=== PATIENT | female | born 1990 | race Two or more races ===

== ENCOUNTER 2019-01-25 13:43 | Emergency (ER) | payer MEDICAID, OTHER ==
[~2019-01-25] VITALS: Ht 165.1 cm; Wt 85.3 kg
[2019-01-25 14:20] VITALS: BP 112/77
[2019-01-25] MEDS ORDERED: PROMETHAZINE HCL 25 MG/ML 1ML IV ONE (14:45)
[2019-01-25] MEDS ORDERED: MEPERIDINE HCL (25 MG/ML) 1ML VIAL IV ONE (14:45)
== END 2019-01-25 16:58 | disposition home or self-care (01) ==
LOC: EDBD 13:43 → ER 13:47
DX: M54.41 Lumbago with sciatica, right side (principal)
CPT/HCPCS: 72100; 96374; 96375; 99283; J2175; J2550